=== PATIENT | male | born 1970 | race Caucasian/White ===

== ENCOUNTER 2017-04-30 12:34 | Emergency (ER) | payer OTHER ==
[2017-04-30 13:04] VITALS: BP 147/93; PULSE 66; TEMP 98.5; BMI 24.2
--- NOTE | 2017-04-30 14:21 | PDOC ---
History of Present Illness - General Chief Complaint: Pain, Acute Stated Complaint: INJURY Time Seen by Provider: 04/30/17 14:18 History Source: Patient Exam Limitations: No Limitations - History of Present Illness Initial Comments: 04/30/17 14:53 Patient works for a [employer], and today when he was cutting a tree and she bounced back and tree branch struck him in the left knee. States incident occurred approximately 10:30 this morning about 4 hours ago. Was able to continue work but has continued pain and swelling to his left knee. No numbness or tingling to foot, no other injury. Occurred: reports: this morning Severity: reports: mild, moderate Pain Location: reports: lower extremity (left knee ) Method of Injury: Yes: direct blow Modifying Factors: improves with: None Loss of Consciousness: no loss of consciousness Past History - Travel Traveled outside of the country in the last 30 days: No Close contact w/someone who was outside of country & ill: No - Past Medical History Allergies/Adverse Reactions: Allergies Allergy/AdvReac Type Severity Reaction Status Date / Time No Known Allergies Allergy Verified 04/30/17 13:00 Home Medications: Ambulatory Orders NK [No Known Home Medication] 04/30/17 COPD: No - Suicide/Smoking/Psychosocial Hx Smoking History: Never smoked Have you smoked in the past 12 months: No Information on smoking cessation initiated: No Hx Alcohol Use: No Drug/Substance Use Hx: No Substance Use Type: None Review of Systems - Review of Systems Able to Perform ROS?: Yes Is the patient limited Greek proficient: Yes Constitutional: Yes: See HPI. No: Symptoms Reported Musculoskeletal: Yes: Symptoms Reported, See HPI, Joint Pain (left knee ), Joint Swelling Integumentary: Yes: See HPI, Bruising All Other Systems: Reviewed and Negative *Physical Exam - Vital Signs Last Vital Signs Temp Pulse Resp BP Pulse Ox 98.5 F 66 16 147/93 100 04/30/17 13:00 04/30/17 13:00 04/30/17 13:00 04/30/17 13:00 04/30/17 13:00 - Physical Exam General Appearance: Yes: Nourished, Appropriately Dressed, Apparent Distress HEENT: positive: VERNA, Normal ENT Inspection, TMs Normal, Pharynx Normal Musculoskeletal: positive: Normal Inspection. negative: Vertebral Tenderness Extremity: positive: Normal Capillary Refill, Normal Range of Motion, Swelling Integumentary: positive: Ecchymosis, Bruising (swelling to patella, no crepitus or step-offs and range of motion is intact to flexion and extending of knee. However is painful. No medial or lateral tenderness, no posterior fossa tenderness. 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, Fully Oriented, Alert, Normal Mood/ Affect, Normal Response, Motor Strength 08/15 Progress Note - Progress Note Progress Note: Contusion left knee *DC/Admit/Observation/Transfer Diagnosis at time of Disposition: Contusion, knee and lower leg Qualifiers: Encounter type: initial encounter Laterality: left Qualified Code(s): S80.02XA - Contusion of left knee, initial encounter; S80.12XA - Contusion of left lower leg, initial encounter; S80.12XA - Contusion of left lower leg, initial encounter - Discharge Dispostion Disposition: HOME Condition at time of disposition: Stable Admit: No - Referrals Referrals: Chai Hunter MD [Staff Physician] - - Patient Instructions Printed Discharge Instructions: Easy Bruising (Alternative Therapy) Additional Instructions: Rest, ice to area on and off for 15 minutes 4-6 times a day Avoid heavy lifting or exercise until pain and swelling is resolved or until further directed Keep area highly elevated to reduce swelling Use splints/Branden wrap as directed Followup with orthopedist in one to 2 days if not improving, if significantly improved may wait one week for followup with orthopedist May use ibuprofen 2-200 mg tablets every 6 hours as needed for pain - Post Discharge Activity Forms/Work/School Notes: Back to Work
== END 2017-04-30 15:00 | disposition home or self-care (01) ==
LOC: JERFT 12:34
DX: S80.02XA Contusion of left knee, initial encounter (principal); S80.12XA Contusion of left lower leg, initial encounter; W20.8XXA Other cause of strike by thrown, projected or falling object, initial encounter; Y93.H2 Activity, gardening and landscaping; Y92.89 Other specified places as the place of occurrence of the external cause; Y99.0 Civilian activity done for income or pay
CPT/HCPCS: 73562-TC-LT; 99281-25